=== PATIENT | female | born 1970 | race Caucasian/White ===

== ENCOUNTER → 2022-06-29 13:49 | Outpatient (BNVA) | payer MEDICAID, SELFPAY | PROVIDERS: Family Provider Family Medicine; Visit Provider Psychiatry & Neurology Neurology | DX: Z79.899 Other long term (current) drug therapy (principal) | CPT/HCPCS: 80061; 83036 ==

== ENCOUNTER → 2023-03-02 12:36 | Outpatient (BNVA) | payer MEDICAID, OTHER, SELFPAY ==
[2022-07-20 11:34] VITALS: BP 127/62; BMI 48.0
== END ==
PROVIDERS: Family Provider Family Medicine; Visit Provider Internal Medicine
DX: R07.9 Chest pain, unspecified (principal); E11.9 Type 2 diabetes mellitus without complications; I10 Essential (primary) hypertension; F17.200 Nicotine dependence, unspecified, uncomplicated
CPT/HCPCS: 93005; 99204

== ENCOUNTER → 2023-08-31 10:21 | Outpatient (BNVA) | payer MEDICARE, MEDICAID, SELFPAY ==
[2022-07-20 11:34] VITALS: BP 127/62; BMI 48.0
== END ==
PROVIDERS: Family Provider Family Medicine; PCP Nurse Practitioner Family; Visit Provider Internal Medicine
DX: I11.0 Hypertensive heart disease with heart failure (principal); I50.9 Heart failure, unspecified; E11.9 Type 2 diabetes mellitus without complications; Z79.85 Long-term (current) use of injectable non-insulin antidiabetic drugs; F17.210 Nicotine dependence, cigarettes, uncomplicated
CPT/HCPCS: 99214

== ENCOUNTER → 2024-06-06 11:50 | Outpatient (BNVA) | payer MEDICARE, OTHER, SELFPAY ==
[2022-07-20 11:34] VITALS: BP 127/62; BMI 48.0
== END ==
PROVIDERS: Family Provider Family Medicine; PCP Nurse Practitioner Family; Visit Provider Psychiatry & Neurology Psychiatry
DX: Z79.899 Other long term (current) drug therapy (principal)
CPT/HCPCS: 80061; 83036

== ENCOUNTER → 2024-09-09 09:34 | Outpatient (BNVA) | payer MEDICARE, MEDICAID, SELFPAY ==
[2024-06-12 14:02] VITALS: BP 131/76; BMI 43.8
== END ==
PROVIDERS: PCP Nurse Practitioner Family; Visit Provider Nurse Practitioner Family
DX: I25.10 Atherosclerotic heart disease of native coronary artery without angina pectoris (principal); I10 Essential (primary) hypertension; E78.5 Hyperlipidemia, unspecified; G47.30 Sleep apnea, unspecified; F17.210 Nicotine dependence, cigarettes, uncomplicated; R07.9 Chest pain, unspecified
CPT/HCPCS: 99214

== ENCOUNTER → 2025-02-11 09:22 | Outpatient (BNVA) | payer MEDICARE, MEDICAID, SELFPAY ==
[2024-06-12 14:02] VITALS: BP 131/76; BMI 43.8
== END ==
PROVIDERS: Family Provider Family Medicine; PCP Nurse Practitioner Family; Visit Provider Podiatrist Foot & Ankle Surgery
DX: E11.42 Type 2 diabetes mellitus with diabetic polyneuropathy (principal); L60.3 Nail dystrophy; E11.8 Type 2 diabetes mellitus with unspecified complications; G62.9 Polyneuropathy, unspecified; L60.1 Onycholysis; E11.621 Type 2 diabetes mellitus with foot ulcer; L97.522 Non-pressure chronic ulcer of other part of left foot with fat layer exposed
CPT/HCPCS: 11721; 99203

== ENCOUNTER → 2025-03-11 14:51 | Outpatient (BNVA) | payer MEDICARE, MEDICAID, SELFPAY ==
[2024-06-12 14:02] VITALS: BP 131/76; BMI 43.8
== END ==
PROVIDERS: Family Provider Family Medicine; PCP Nurse Practitioner Family; Visit Provider Internal Medicine
DX: R07.9 Chest pain, unspecified (principal); E11.9 Type 2 diabetes mellitus without complications; Z79.85 Long-term (current) use of injectable non-insulin antidiabetic drugs; F17.210 Nicotine dependence, cigarettes, uncomplicated; I11.0 Hypertensive heart disease with heart failure; I50.9 Heart failure, unspecified
CPT/HCPCS: 99213